=== PATIENT | male | born 1935 | race Caucasian/White ===

== ENCOUNTER 2017-10-07 18:49 | Emergency (ER) | payer OTHER ==
[~2017-10-07] VITALS: Ht 160 cm; Wt 77.1 kg
[2017-10-07] MEDS ORDERED: NORVASC10 MG (19:02)
[2017-10-07] MEDS ORDERED: VERAPAMIL HCL40 MG (19:02)
[2017-10-07] MEDS ORDERED: NOVOLIN 70100 UNIT/1 (19:02)
== END 2017-10-07 20:09 | disposition home or self-care (01) ==
LOC: ER 18:49
DX: H66.91 Otitis media, unspecified, right ear (principal)